=== PATIENT | female | born 1985 | race American Indian/Alaskan Native ===

== ENCOUNTER 2017-06-27 16:16 | Outpatient (CLI) | payer OTHER ==
[2017-06-27] MEDS ORDERED: LACTATED RINGERS 500 ML IV ONE (17:00)
[2017-06-27 17:02] VITALS: BP 114/69
[2017-06-27 17:47] LABS: Bilirubin,Urine NEG (Negative); Blood,Urine MOD (Negative); Color,Urine Yellow (Yellow); Mucus,Urine FEW /HPF; Urobilinogen,Urine < 2.0 mg/dL (<2.0)
== END 2017-06-27 18:46 | disposition home or self-care (01) ==
LOC: TRG 16:16
PROVIDERS: ATTEND Obstetrics & Gynecology
DX: O47.03 False labor before 37 completed weeks of gestation, third trimester (principal); Z3A.33 33 weeks gestation of pregnancy
CPT/HCPCS: 59025; 81001